=== PATIENT | female | born 1980 ===

== ENCOUNTER 2016-11-09 12:40 | Emergency (ER) | payer OTHER ==
[2016-11-09 12:45] VITALS: BP 127/83; PULSE 84; RESP 20; TEMP 97.8; O2SAT 100
--- NOTE | 2016-11-09 13:02 | C.PDOC ---
History Of Present Illness 36 y/o female presents to the ED with complaints of right ear pain and decreased hearing x2 days. Pt denies sore throat, fever, chills or any other complaints. Pt took Motrin a few hours [employer]. Time Seen by Provider: 11/09/16 12:46 Chief Complaint (Nursing): ENT Problem History Per: Patient History/Exam Limitations: None Onset/Duration Of Symptoms: Days Current Symptoms Are (Timing): Still Present Symptoms Have Been: Continuous Severity: Moderate Anticoagulant/Antiplatlet Use?: No Past Medical History Reviewed: Historical Data, Nursing Documentation, Vital Signs Vital Signs: Last Vital Signs Temp 97.8 F 11/09/16 12:44 Pulse 84 11/09/16 12:44 Resp 20 11/09/16 12:44 BP 127/83 11/09/16 12:44 Pulse Ox 100 11/10/16 22:48 - Medical History PMH: No Chronic Diseases Surgical History: No Surg Hx Family History: States: Unknown Family Hx - Social History Hx Tobacco Use: No Hx Alcohol Use: No Hx Substance Use: No - Immunization History Hx Tetanus Toxoid Vaccination: No Hx Influenza Vaccination: No Hx Pneumococcal Vaccination: No Review Of Systems Constitutional: Negative for: Fever, Chills ENT: Positive for: Ear Pain (right), Other (decreased hearing right ear). Negative for: Nose Discharge, Throat Pain Respiratory: Negative for: Cough Skin: Negative for: Rash Physical Exam - Physical Exam Appears: Non-toxic, No Acute Distress, Other (appears uncomfortable) Skin: Warm, Dry, No Rash Head: Atraumatic, Normacephalic Eye(s): bilateral: Normal Inspection Ear(s): Left: TM Dull, Right: Other (swelling to external canal, debri noted, unable to visualize TM) Nose: Normal, No Discharge Oral Mucosa: Moist Tongue: Normal Appearing Lips: Normal Appearing Throat: Normal, No Erythema Neck: Normal, Normal ROM, Supple Chest: Symmetrical, No Tenderness Cardiovascular: Rhythm Regular, No Murmur Respiratory: Normal Breath Sounds, No Rales, No Rhonchi, No Stridor, No Wheezing Neurological/Psych: Oriented x3, Normal Speech ED Course And Treatment O2 Sat by Pulse Oximetry: 100 (room air) Pulse Ox Interpretation: Normal Medical Decision Making Medical Decision Making: pt with right ear pain, swelling to external canal with debris and erythema in canal; will treat for otitis externa and media. f/u pmd and ent. Disposition Counseled Patient/Family Regarding: Diagnosis, Need For Followup, Rx Given - Disposition Referrals: Inocencio Sandoval MD [Staff Provider] - Aaron Reeves MD [Staff Provider] - Disposition: HOME/ ROUTINE Disposition Time: 13:13 Condition: STABLE Additional Instructions: Take Antibiotics by mouth until finished. Tylenol or Motrin for pain if needed. Use drops as directed. Follow up with your doctor or with Dr Reeves ( ear, nose and throat doctor) in 1-2 days. Return to ER for any worsening symptoms. Prescriptions: Amoxicillin [Amoxil 500 mg Cap] 500 mg PO TID #30 cap Neomycin/Polymyxin/Hydrocortis [Cortisporin Otic Susp] 4 drop QID #1 bottle Instructions: Otitis Externa (ED), Otitis Media (ED) Print Language: VIET[place]ESE - Clinical Impression Clinical Impression: Otitis externa, acute, Otitis media, right - PA / [employer]PERATOR / Resident Statement MD/DO has reviewed & agrees with the documentation as recorded. - Scribe Statement The provider has reviewed the documentation as recorded by the Rinkuibrenetta Mackenzie All medical record entries made by the Santos were at my direction and personally dictated by me. I have reviewed the chart and agree that the record accurately reflects my personal performance of the history, physical exam, medical decision making, and the department course for this patient. I have also personally directed, reviewed, and agree with the discharge instructions and disposition.
== END 2016-11-09 13:24 | disposition home or self-care (01) ==
LOC: C.ER 12:40
DX: H60.501 Unspecified acute noninfective otitis externa, right ear (principal); H66.91 Otitis media, unspecified, right ear

== ENCOUNTER 2016-11-10 09:32 | Emergency (ER) | payer OTHER ==
[2016-11-10 09:37] VITALS: BMI 30.1
[2016-11-10 09:43] VITALS: RESP 18; TEMP 97.7
[2016-11-10] MEDS ORDERED: Oxycodone/Acetaminophen 5/325 mg Tab PO STA (10:14)
--- NOTE | 2016-11-10 10:17 | C.PDOC ---
History Of Present Illness 36 y/o female presents to ED with c/o right ear pain for 3 days. Pt seen in ER yesterday, and was prescribed corticosporin and amoxicillin, which pt states she has been taking w/o relief. Patient returns today for persistent pain to the ear. Denies fever, sore throat, URI symptoms. Time Seen by Provider: 11/10/16 10:03 Chief Complaint (Nursing): ENT Problem History Per: Patient History/Exam Limitations: None Onset/Duration Of Symptoms: Days (3) Current Symptoms Are (Timing): Still Present Past Medical History Reviewed: Historical Data, Nursing Documentation, Vital Signs Vital Signs: Last Vital Signs Temp 97.7 F 11/10/16 09:42 Pulse 71 11/10/16 11:07 Resp 18 11/10/16 11:07 BP 124/71 11/10/16 11:07 Pulse Ox 98 11/10/16 11:07 - Medical History PMH: No Chronic Diseases Family History: States: Unknown Family Hx - Social History Hx Tobacco Use: No Hx Alcohol Use: No Hx Substance Use: No - Immunization History Hx Tetanus Toxoid Vaccination: No Hx Influenza Vaccination: No Hx Pneumococcal Vaccination: No Review Of Systems Except As Marked, All Systems Reviewed And Found Negative. Constitutional: Negative for: Fever, Chills ENT: Positive for: Ear Pain (R). Negative for: Throat Pain Respiratory: Negative for: Cough Gastrointestinal: Negative for: Nausea, Vomiting Skin: Negative for: Rash Physical Exam - Physical Exam Appears: Non-toxic, No Acute Distress Skin: Normal Color, Warm, Dry Head: Atraumatic, Normacephalic Eye(s): bilateral: Normal Inspection, PERRL, EOMI Ear(s): Left: Normal, Right: Other (moderate swelling and exudate of the canal) Nose: Normal Oral Mucosa: Moist Throat: Normal, No Erythema, No Exudate Neck: Supple Neurological/Psych: Oriented x3, Normal Speech, Normal Cognition ED Course And Treatment O2 Sat by Pulse Oximetry: 99 (RA) Pulse Ox Interpretation: Normal Progress Note: Treated with Percocet. On reevaluation, patient reports improvement of pain, and is in no acute disterss. Advised to continue same medications. Disposition Counseled Patient/Family Regarding: Diagnosis, Need For Followup - Disposition Referrals: Inocencio Sandoval MD [Primary Care Provider] - Disposition: HOME/ ROUTINE Disposition Time: 10:15 Condition: GOOD Prescriptions: Naproxen [Naprosyn] 1 tab PO BID PRN #25 tab PRN Reason: Pain Instructions: Otitis Externa (ED) Print Language: GU[place]AL[place] - Clinical Impression Clinical Impression: Otitis externa, acute - Scribe Statement The provider has reviewed the documentation as recorded by the Rinkuibrenetta Hickey All medical record entries made by the Rinkuibrenetta were at my direction and personally dictated by me. I have reviewed the chart and agree that the record accurately reflects my personal performance of the history, physical exam, medical decision making, and the department course for this patient. I have also personally directed, reviewed, and agree with the discharge instructions and disposition.
[2016-11-10] MEDS ORDERED: Naproxen 550 mg Tab PO STA (10:26)
[2016-11-10] MEDS ORDERED: Naproxen 550 mg Tab PO ONE (10:26)
[2016-11-10 11:09] VITALS: BP 124/71; PULSE 71
[2016-11-10 18:46] VITALS: O2SAT 99
== END 2016-11-10 11:09 | disposition home or self-care (01) ==
LOC: C.ER 09:32 → SUPCPDRO 09:32 → C.ER 11:09
DX: H60.91 Unspecified otitis externa, right ear (principal)

== ENCOUNTER 2017-11-23 07:57 | Day surgery (SDC) | payer OTHER ==
[2017-11-23 09:08] VITALS: O2SAT 100
[2017-11-23] MEDS ORDERED: Propofol 10 mg/ml Inj (20 ML) ONE (09:59)
--- NOTE | 2017-11-23 10:01 | CP.SDSHP ---
Same Day Surgery H & P - History Proposed Procedure: EGD Pre-Op Diagnosis: SEE NOTES - Previous Medical/Surgical History Misc: Other Pain: 4.Moderate Pain - Allergies Allergies: Allergies No Known Allergies Allergy (Verified 11/10/16 09:36) - Physical Exam General Appearance: N Vital Signs: Vital Signs 11/23/17 08:30 Temperature 97.5 F L Pulse Rate 75 Respiratory 19 Rate Blood Pressure 133/81 O2 Sat by Pulse 100 Oximetry Mental Status: Alert & Oriented x3 Heart: WNL Lungs: WNL GI: Other - {Optional Preform as Required} Breast: WNL Abdomen: Other Rectal: Other Integument: WNL : WNL Ortho: WNL ENT: WNL - Impression Pt. Evaluated Today:Candidate for Anesthesia & Procedure: Yes - Date & Time Time: 10:00 Short Stay Discharge - Short Stay Discharge Admitting Diagnosis/Reason for Visit: DYSPEPSIA Disposition: HOME/ ROUTINE Referrals: Inocencio Sandoval MD [Primary Care Provider] -
[2017-11-23] MEDS ORDERED: Belladonna-Phenobarbital PO STA (10:09)
[2017-11-23 10:52] VITALS: TEMP 97.8
[2017-11-23 11:20] VITALS: BP 112/60; PULSE 66; RESP 14
== END 2017-11-23 11:15 | disposition home or self-care (01) ==
LOC: C.ENDO 07:57
PROVIDERS: ATTEND Specialist
DX: K21.0 Gastro-esophageal reflux disease with esophagitis (principal); R10.84 Generalized abdominal pain; R10.13 Epigastric pain; R11.2 Nausea with vomiting, unspecified; K44.9 Diaphragmatic hernia without obstruction or gangrene; B96.81 Helicobacter pylori [H. pylori] as the cause of diseases classified elsewhere; K29.50 Unspecified chronic gastritis without bleeding
CPT/HCPCS: 43239; 84703; 88305; J2001; J2704